=== PATIENT | male | born 1985 | race Caucasian/White ===

== ENCOUNTER 2017-12-15 15:33 | Emergency (ER) | payer BC ==
[~2017-12-15] VITALS: Ht 180.3 cm; Wt 148.0 kg
[2017-12-15 15:38] VITALS: BP 153/73; PULSE 60; RESP 16; TEMP 98.1; O2SAT 97
--- NOTE | 2017-12-15 16:35 | PD ---
HPI Chief Complaint: Laceration/Skin Injury Time Seen by Provider: 16:01 Travel History International Travel<30 days: Yes Contact w/Intl Traveler<30days: Yes Name of Country Traveled to: [facility] Traveled to known affect area: No History of Present Illness HPI 32-year-old male here with a laceration to the right thumb caused by knife. He reports he was unable to get the bleeding to stop therefore came into the ER. Symptom severity is mild. No aggravating or alleviating factors. Patient is not anticoagulated. He reports normal sensation of full range of motion of the finger. Tetanus immunization is up-to-date. [facility] Past Medical History Medical History: Denies Significant Hx Diminished Hearing: No Immunizations Current: Yes Influenza Vaccination: No Past Surgical History Surgical History: No Previous Surgery Genitourinary Surgery: Yes (VASECTOMY) Social History Alcohol Use: Yes (ONE BEER Q 2 WEEKS) Tobacco Use: No Substance Use: No Allergies-Medications (Allergen,Severity, Reaction): Coded Allergies: grass pollen (Unverified Allergy, Mild, BREAKS OUT IN RASH, 12/15/17) Reported Meds & Prescriptions Reported Meds & Active Scripts Active No Active Prescriptions or Reported Medications Review of Systems Except as stated in HPI: all other systems reviewed are Neg General / Constitutional: No: Fever Eyes: No: Visual changes HENT: No: Headaches Cardiovascular: No: Chest Pain or Discomfort Physical Exam Narrative GENERAL: Alert and well-appearing 32-year-old male SKIN: Warm and dry. Small skin avulsion injury to the distal aspect of the right thumb. No active bleeding. HEAD: Normocephalic. EYES: No injection or drainage. NECK: Supple MUSCULOSKELETAL: No cyanosis, or edema. Right upper extremity: Small 3 mm avulsion skin injury to the distal aspect of the thumb finger pad. No active bleeding. Patient reports normal sensation and full range of motion of the thumb. Brisk cap refill. Data Data Last Documented VS Vital Signs Date Time Temp Pulse Resp B/P (MAP) Pulse Ox O2 Delivery O2 Flow Rate FiO2 12/15/17 15:38 98.1 60 16 153/73 (99) 97 Orders Orders Ed Discharge Order (12/15/17 16:39) MDM Medical Decision Making Medical Screen Exam Complete: Yes Emergency Medical Condition: Yes Differential Diagnosis Avulsion skin injury, laceration, tendon injury Narrative Course 32-year-old male with an avulsion skin injury to the right thumb. Bleeding is well controlled. Dermabond used. Procedures Procedure Narrative Laceration repair: The area was cleansed with normal saline. Dermabond applied over skin avulsion. Diagnosis Primary Impression: Finger laceration Qualified Codes: S61.011A - Laceration without foreign body of right thumb without damage to nail, initial encounter Referrals: Primary Care Physician Additional Instructions: Avoid submerging the wound in water. Apply firm pressure if the area begins to rebleed. Return to emergency department if he develop signs or symptoms of infection Scripts No Active Prescriptions or Reported Meds Disposition: 01 DISCHARGE HOME Condition: Stable María Blair Dec 15, 2017 16:35
== END 2017-12-15 16:49 | disposition home or self-care (01) ==
LOC: PHEFT 15:33
DX: S61.011A Laceration without foreign body of right thumb without damage to nail, initial encounter (principal); W26.0XXA Contact with knife, initial encounter
CPT/HCPCS: 12001